=== PATIENT | female | born 1995 | race Caucasian/White ===

== ENCOUNTER 2016-09-13 01:59 | Emergency (ER) | payer MEDICAID ==
[2016-09-13 02:42] LABS: Bilirubin Negative (Negative); Blood, Urine Trace (Negative); Clarity Clear (Clear); Glucose, Urine (Dipstick) Negative (Negative); Leukocyte Negative (Negative); Nitrite Negative (Negative); Protein, Urine (Dipstick) Negative (Neg-Trace); Specific Gravity, Urine 1.015 (1.005-1.030); Urobilinogen 0.2 mg/dL (0.2-1.0)
[2016-09-13 02:43] LABS: Pregnancy Test - Urine (BHCG) NEGATIVE (NEGATIVE); Pregu Control Background? CLEAR/WHITE (CLR/WHITE); Pregu Control Bar Appear? YES (CONTROL BAR); Specific Gravity 1.015 (1.002-1.036)
[2016-09-13] MEDS ORDERED: Ondansetron HCl/PF 4 MG/2 ML Vial ONE (02:46)
[2016-09-13 02:47] LABS: Bacteria/HPF Rare-Few HPF (None Seen); RBC/HPF 0-3 HPF (0-3); WBC/HPF None Seen HPF (0-3)
[2016-09-13 02:49] LABS: Amphetamine Not Detected (NotDetected); Barbiturates Screen Not Detected (NotDetected); Benzodiazepine Screen Not Detected (NotDetected); Cocaine Metabolite Screen Not Detected (NotDetected); Medtox Control Line Valid? VALID (VALID); Methadone Not Detected (NotDetected); Methamphetamine Not Detected (NotDetected); Opiate Screen Not Detected (NotDetected); Oxycodone Screen Not Detected (NotDetected); Phencyclidine (PCP) Not Detected (NotDetected); THC/Cannabinoid Screen Not Detected (NotDetected); Tricyclic Screen Not Detected (NotDetected)
[2016-09-13 03:10] LABS: #Basophils 0.1 thou/uL (0.0-0.2); #Eosinphils 0.1 thou/uL (0.0-0.7); #Lymphocytes 2.6 thou/uL (1.20-3.40); #Monocytes 0.7 thou/uL (0.11-0.59); #Neutrophils 7.2 thou/uL (1.40-6.50); %Basophils 0.6 % (0.0-1.0); %Eosinophils 0.9 % (0.0-10.0); %Lymphocytes 24.2 % (28.0-48.0); %Monocytes 6.1 % (0.0-4.0); %Neutrophils 68.2 % (31.0-61.0); Hemoglobin 13.4 g/dL (12.0-16.0); Mean Corpuscular Hemoglobin 29.8 pg (25.0-35.0); Mean Corpuscular Volume 87.6 fl (77.0-87.0); Mean Platelet Volume 8.2 fL (7.4-10.4); Platelet Count 347 thou/uL (130-400); RBC Distribution Width 11.7 % (11.5-14.5); Red Blood Cell (RBC) Count 4.51 mill/uL (4.00-5.20); White Blood Cell (WBC) Count 10.6 thou/uL (4.8-10.8)
[2016-09-13 03:27] LABS: ALT (SGPT) 28 U/L (0-55); AST (SGOT) 18 U/L (5-34); Albumin 4.6 g/dL (3.5-5.0); Alkaline Phosphatase 93 U/L (40-150); Anion Gap 18 mmol/L (10-20); BUN (Urea Nitrogen) 15 mg/dL (7.0-18.7); Bilirubin, Total Less than 0.3 mg/dL (0.2-1.2); Calc. Creatinine Clearance 0 mL/min (70-130); Calcium 9.3 mg/dL (7.8-10.44); Carbon Dioxide 22 mmol/L (22-29); Chloride 105 mmol/L (98-107); Estimated GFR-MDRD Greater than 90; Globulin 3.2 g/dL (2.4-3.5); Glucose 96 mg/dL (70-105); Potassium 3.5 mmol/L (3.5-5.1); Protein, Total 7.8 g/dL (6.0-8.3); Sodium 141 mmol/L (136-145)
[2016-09-13 03:31] LABS: CKMB 0.4 ng/mL (0-6.6); Troponin I Less than 0.010 ng/mL (< 0.028)
--- NOTE | 2016-09-13 04:42 | PICIS ---
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 (0-3), WBC/HPF None Seen HPF, Range (0-3), *Squamous Epithelial 4-6 - H HPF, Range (0-3), Bacteria/HPF Rare-Few HPF, Range (None Seen). (02:50 ADEA) Urinalysis w/ Rflx Microscopic Collection DT: SatSep 13, 2016 02:41, Color Bright Yellow , Range (Yellow), Clarity Clear , Range (Clear), Specific [place], Urine 1.015 , Range (1.005-1.030), &a-1R&a+25V*p+0X*[id number]*c202B*c15G*c2P*p-0X&a-25V&a+1R Name: Cammie Sy Sis : 1995 F21 MedRec: [id number] AcctNum: [id number] Prepared: SatSep 13, 2016 04:37 by Interface Page 10 of 13 pMD [facility] EMERGENCY RECORD pH, Urine 7.0 , Range (5.0-9.0), Leukocyte Negative , Range (Negative), Nitrite Negative , Range (Negative), Protein, Urine (Dipstick) Negative mg/dL, Range (Neg-Trace), Glucose, Urine (Dipstick) Negative mg/dL, Range (Negative), Ketone, Urine Negative mg/dL, Range (Negative), Urobilinogen 0.2 mg/dL, Range (0.2-1.0), Bilirubin Negative , Range (Negative), *Blood, Urine Trace - H , Range (Negative). (02:50 ADEA) Drug Screen, Urine Collection DT: SatSep 13, 2016 02:41, THC/Cannabinoid Screen Not Detected , Range (NotDetected), Phencyclidine (PCP) Not Detected , Range (NotDetected), Cocaine Metabolite Screen Not Detected , Range (NotDetected), Methamphetamine Not Detected , Range (NotDetected), Opiate Screen Not Detected , Range (NotDetected), Amphetamine Not Detected , Range (NotDetected), Benzodiazepine Screen Not Detected , Range (NotDetected), Tricyclic Screen Not Detected , Range (NotDetected), Methadone Not Detected , Range (NotDetected), Barbiturates Screen Not Detected , Range (NotDetected), Oxycodone Screen Not Detected , Range (NotDetected), Propoxyphene Screen Not Detected , Range (NotDetected), Drug Screen Cutoff , Range (), The [employer] Profile-V Panel for Qualitative Drugs of Abuse assays are for, presumptive screening testing only. The drug class and detection limits, are as follows: Drug Class Detection Limit Amphetamine , 500 ng/mL* Barbiturates 200 ng/mL , Benzodiazepines 150 ng/mL* Cocaine 150 ng/mL*, Methamphetamine 500 ng/mL* Methadone 200, ng/mL* Opiates 100 ng/mL* Oxycodone , 100 ng/mL PCP 25 ng/mL Propoxyphene , 300 ng/mL Tricyclic Antidepressants 300 ng/mL Cannabinoids (THC) , 50 ng/mL Tests which yield a presumptive positive result must be , tested using a more specific alternate chemical method in order to obtain, a confirmed analytical result. Additional confirmation and identification, may be ordered on a routine basis, if desired. Presumptive positive urines, are held for two weeks. . (02:51 LHOD) CBC with Differential Collection DT: SatSep 13, 2016 03:08, White Blood Cell (WBC) Count 10.6 thou/uL, Range (4.8-10.8), &a-1R&a+25V*p+0X*[id number]*c202B*c15G*c2P*p-0X&a-25V&a+1R Name: Cammie Sy Sis : 1995 F21 MedRec: [id number] AcctNum: [id number] Prepared: SatSep 13, 2016 04:37 by Interface Page 11 of 13 pMD [facility] EMERGENCY RECORD Red Blood Cell (RBC) Count 4.51 mill/uL, Range (4.00-5.20), Hemoglobin 13.4 g/dL, Range (12.0-16.0), Hematocrit 39.5 %, Range (36.0-47.0), *Mean Corpuscular Volume 87.6 - H fl, Range (77.0-87.0), Mean Corpuscular Hemoglobin 29.8 pg, Range (25.0-35.0), Mean Corpuscular HGB CONC 34.0 g/dL, Range (32.0-36.0), RBC Distribution Width 11.7 %, Range (11.5-14.5), Platelet Count 347 thou/uL, Range (130-400), Mean Platelet Volume 8.2 fL, Range (7.4-10.4), *%Neutrophils 68.2 - H %, Range (31.0-61.0), *%Lymphocytes 24.2 - L %, Range (28.0-48.0), *%Monocytes 6.1 - H %, Range (0.0-4.0), %Eosinophils 0.9 %, Range (0.0-10.0), %Basophils 0.6 %, Range (0.0-1.0), *#Neutrophils 7.2 - H thou/uL, Range (1.40-6.50), #Lymphocytes 2.6 thou/uL, Range (1.20-3.40), *#Monocytes 0.7 - H thou/uL, Range (0.11-0.59), #Eosinphils 0.1 thou/uL, Range (0.0-0.7), #Basophils 0.1 thou/uL, Range (0.0-0.2). (03:11 OD) D-Dimer (Quantitative) Collection DT: Carmina Sep 13, 2016 03:08, *D-Dimer Test Less than 0.27 - L *mcg/mL, Range (0.27-0.43), * Reference Range Units: mcg/mL of fibrinogen equivalent, units(FEU) Based upon a retrospective study of [facility] patients in December 2005, a result of Less than 0.44 mcg/mL FEU is, predictive of the absence of a DVT or PE. . (03:25 LHOD) Comprehensive Metabolic Panel Collection DT: SatSep 13, 2016 03:08, Sodium 141 mmol/L, Range (136-145), Potassium 3.5 mmol/L, Range (3.5-5.1), Chloride 105 mmol/L, Range (98-107), Carbon Dioxide 22 mmol/L, Range (22-29), Anion Gap 18 mmol/L, Range (10-20), BUN (Urea Nitrogen) 15 mg/dL, Range (7.0-18.7), Creatinine 0.76 mg/dL, Range (0.6-1.1), Estimated GFR-MDRD Greater than 90 , Reference Range for Estimated GFR: Greater than 90, mL/min/1.73 m2 NOTE: The MDRD equation has not been validated for use, with the elderly (over 70 years of age), women, patients with, serious comorbid condition or persons with extremes of body size, muscle, mass, or nutritional status. , Glucose 96 mg/dL, Range (70-105), Calcium 9.3 mg/dL, Range (7.8-10.44), Bilirubin, Total Less than 0.3 mg/dL, Range (0.2-1.2), Protein, Total 7.8 g/dL, Range (6.0-8.3), NOTE: Plasma values are generally 0.3 to 0.5 g/dL higher &a-1R&a+25V*p+0X*a3869R*c202B*c15G*c2P*p-0X&a-25V&a+1R Name: Cammie Sy : 1995 F21 MedRec: [id number] AcctNum: [id number] Prepared: SatSep 13, 2016 04:37 by Interface Page 12 of 13 pMD [facility] EMERGENCY RECORD than serum values, due to the presence of fibrinogen. , Albumin 4.6 g/dL, Range (3.5-5.0), Globulin 3.2 g/dL, Range (2.4-3.5), Alb/Glob Ratio 1.4 g/dL, Range (1.2-2.2), Alkaline Phosphatase 93 U/L, Range (40-150), AST (SGOT) 18 U/L, Range (5-34), ALT (SGPT) 28 U/L, Range (0-55). (03:29 LHOD) Cardiac Profile w/CKMB & TropI Collection DT: SatSep 13, 2016 03:08, CKMB 0.4 ng/mL, Range (0-6.6), Troponin I Less than 0.010 ng/mL, Range (< 0.028), Reference Range , 0.00 - 0.028 ng/mL Negative 0.029 - 0.29 ng/mL , Indeterminate Greater or Equal to 0.3 ng/mL Strongly suggests [place] , . (03:32 LHOD) Thyroid Stimulating Hormone Collection DT: SatSep 13, 2016 03:08, Thyroid Stimulating Hormone 2.5208 uIU/mL, Range (0.35-4.94). (03:47 LHOD) Edwards: ADEA=RAMIRO Aguirre, David LHOD=MD Yuliana, Asael MCRS=RAMIRO Lozano, Geovany &a-1R&a+25V*p+0X*r2320N*c202B*c15G*c2P*p-0X&a-25V&a+1R Name: Cammie Sy Sis : 1995 F21 MedRec: [id number] AcctNum: [id number] Prepared: SatSep 13, 2016 04:37 by Interface Page 13 of 13 pMD MTDD
[2016-09-13] MEDS ORDERED: Sodium Chloride 0.9% 1,000 ML BAG ONE (07:35)
== END 2016-09-13 04:10 | disposition home or self-care (01) ==
LOC: MADERS 01:59
DX: R00.0 Tachycardia, unspecified (principal)
CPT/HCPCS: 80053; 80306; 81003; 81015; 81025; 82553; 84443; 84484; 85025; 85379; 93005; 96361; 96374; J2405; J7050

== ENCOUNTER 2022-03-02 12:00 | Emergency (ER) | payer OTHER | END 2022-03-02 12:36 | disposition home or self-care (01) | LOC: MADERS 12:00 | DX: K04.7 Periapical abscess without sinus (principal); F17.210 Nicotine dependence, cigarettes, uncomplicated | CPT/HCPCS: 99282 ==

== ENCOUNTER 2022-07-13 21:41 | Emergency (ER) | payer OTHER ==
[2022-07-13 22:10] LABS: Bilirubin Negative (Negative); Blood, Urine Small (Negative); Clarity Clear (Clear); Glucose, Urine (Dipstick) Negative (Negative); Ketone, Urine Negative (Negative); Leukocyte Negative (Negative); Nitrite Negative (Negative); Protein, Urine (Dipstick) Trace mg/dL (Neg-Trace); Urobilinogen 0.2 mg/dL (Less than 2)
[2022-07-13 22:11] LABS: Specific Gravity, Urine 1.032 (1.002-1.036)
[2022-07-13 22:17] LABS: Bacteria/HPF 1+ HPF (None Seen); Mucous/LPF 2+ LPF (<2+)
[2022-07-13] MEDS ORDERED: Cephalexin 500 MG CAP ONE (22:25)
== END 2022-07-13 22:40 | disposition home or self-care (01) ==
LOC: MADERS 21:41
DX: N39.0 Urinary tract infection, site not specified (principal); R31.9 Hematuria, unspecified
CPT/HCPCS: 81003; 81015; 87077; 87086; 99283

== ENCOUNTER 2022-09-08 21:42 | Emergency (ER) | payer MEDICAID, OTHER, SELFPAY ==
[~2022-09-08 21:42] MED LIST: Iopamidol 370 76% 125 ML VIAL FS ONE; Sodium Chloride 0.9% 100 ML BAG ONE
[2022-09-08 23:04] LABS: #Basophils 0.1 thou/uL (0.0-0.2); #Eosinphils 0.1 thou/uL (0.0-0.7); #Lymphocytes 2.2 thou/uL (1.20-3.40); #Monocytes 0.4 thou/uL (0.11-0.59); #Neutrophils 4.4 thou/uL (1.40-6.50); %Eosinophils 1.5 % (0.0-10.0); %Lymphocytes 30.7 % (21.0-51.0); %Neutrophils 61.8 % (42.0-75.0); Hemoglobin 12.8 g/dL (12.0-16.0); Mean Corpuscular HGB CONC 32.1 g/dL (32.0-36.0); Mean Corpuscular Hemoglobin 26.8 pg (27.0-31.0); Mean Corpuscular Volume 83.6 fl (78.0-98.0); Mean Platelet Volume 9.1 fL (7.4-10.4); Platelet Count 301 10x3/uL (130-400); RBC Distribution Width 12.7 % (11.5-14.5); Red Blood Cell (RBC) Count 4.75 mill/uL (4.20-5.40); White Blood Cell (WBC) Count 7.1 10x3/uL (4.8-10.8)
[2022-09-08 23:25] LABS: Acetaminophen Less than 10.0 mcg/mL (10.0-30.0); Alcohol Less than 10 mg/dL (Less than 10); Anion Gap 16 mmol/L (10-20); BUN (Urea Nitrogen) 12 mg/dL (7.0-18.7); CK (CPK) 70 U/L (29-168); Calc. Creatinine Clearance 0 mL/min (70-130); Calcium 9.3 mg/dL (7.8-10.44); Carbon Dioxide 21 mmol/L (22-29); Chloride 108 mmol/L (98-107); Estimated GFR 109; Glucose 87 mg/dL (70-105); Magnesium 2.1 mg/dL (1.6-2.6); Potassium 3.6 mmol/L (3.5-5.1); Salicylate Less than 8.0 mg/dL (15.0-30.0); Sodium 141 mmol/L (136-145)
[2022-09-08 23:42] LABS: Bilirubin Negative (Negative); Blood, Urine Negative (Negative); Clarity Clear (Clear); Glucose, Urine (Dipstick) Negative (Negative); Ketone, Urine Negative (Negative); Leukocyte Negative (Negative); Nitrite Negative (Negative); Protein, Urine (Dipstick) Negative (Neg-Trace); Urobilinogen 0.2 mg/dL (Less than 2)
[2022-09-08 23:43] LABS: Pregnancy Test - Urine (BHCG) Negative (Negative); Pregu Control Background? CLEAR/WHITE (CLR/WHITE); Pregu Control Bar Appear? YES (CONTROL BAR); Specific Gravity 1.012 (1.002-1.036)
[2022-09-08 23:50] LABS: Amphetamine Not Detected (NotDetected); Barbiturates Screen Not Detected (NotDetected); Benzodiazepine Screen Not Detected (NotDetected); Cocaine Metabolite Screen Not Detected (NotDetected); Medtox Control Line Valid? VALID (VALID); Methadone Not Detected (NotDetected); Methamphetamine Not Detected (NotDetected); Opiate Screen Not Detected (NotDetected); Oxycodone Screen Not Detected (NotDetected); Phencyclidine (PCP) Not Detected (NotDetected); THC/Cannabinoid Screen Not Detected (NotDetected); Tricyclic Screen Not Detected (NotDetected)
== END 2022-09-09 00:58 | disposition home or self-care (01) ==
LOC: MADERS 21:42
DX: R42 Dizziness and giddiness (principal); D50.9 Iron deficiency anemia, unspecified; F17.210 Nicotine dependence, cigarettes, uncomplicated
CPT/HCPCS: 71275; 80048; 80306; 80307; 81003; 81025; 82550; 83735; 84443; 84484; 85025; 85379; 93005; Q9967

== ENCOUNTER 2022-12-20 14:36 | Emergency (ER) | payer OTHER ==
[2022-12-20 15:31] LABS: Pregnancy Test - Urine (BHCG) Negative (Negative); Pregu Control Background? CLEAR/WHITE (CLR/WHITE); Pregu Control Bar Appear? YES (CONTROL BAR); Specific Gravity 1.028 (1.002-1.036)
== END 2022-12-20 15:54 | disposition home or self-care (01) ==
LOC: MADERS 14:36
DX: K08.89 Other specified disorders of teeth and supporting structures (principal); Z87.891 Personal history of nicotine dependence
CPT/HCPCS: 81025; 99283

== ENCOUNTER 2023-07-15 19:34 | Emergency (ER) | payer OTHER ==
[2023-07-15] MEDS ORDERED: Acetaminophen 500 MG TAB ONE (20:09)
[2023-07-15 20:12] LABS: Bilirubin Negative (Negative); Blood, Urine Trace (Negative); Clarity Clear (Clear); Glucose, Urine (Dipstick) Negative (Negative); Ketone, Urine Negative (Negative); Leukocyte Trace (Negative); Nitrite Negative (Negative); Protein, Urine (Dipstick) Negative (Neg-Trace); Urobilinogen 0.2 mg/dL (Less than 2)
[2023-07-15 20:15] LABS: RBC/HPF 0-3 HPF (0-3)
[2023-07-15] MEDS ORDERED: cefTRIAXone (ROCEPHIN) 1 GM VIAL ONE (20:30)
[2023-07-15] MEDS ORDERED: Lidocaine 1% PF 5 ML VIAL ONE (20:30)
== END 2023-07-15 21:00 | disposition home or self-care (01) ==
LOC: MADERS 19:34
DX: N39.0 Urinary tract infection, site not specified (principal); J06.9 Acute upper respiratory infection, unspecified; D50.9 Iron deficiency anemia, unspecified; Z87.891 Personal history of nicotine dependence
CPT/HCPCS: 81001; 96372; 99283; J0696